=== PATIENT | female | born 2000 | race Caucasian/White ===

== ENCOUNTER 2020-02-23 12:35 | Inpatient (IN) | payer OTHER ==
[2020-02-23] VITALS (25 sets, daily range): BP systolic 103–155; BP diastolic 55–85
[~2020-02-23] VITALS: Ht 177.8 cm; Wt 91.1 kg
[2020-02-23] MEDS ORDERED: PRENTAB9 PO (12:53)
[2020-02-23 14:57] LABS: BASO % 0.2 % (0.0-1.0); EOS # 0.1 10^3/uL (0.0-0.5); EOS % 0.7 % (0.0-3.0); HEMATOCRIT 34.4 % (36.0-47.0); LYMPH % 16.1 % (24.0-44.0); MEAN CORPUSCULAR HEMOGLOBIN 26.4 pg (27.0-33.0); MEAN CORPUSCULAR VOLUME 82.7 fl (80.0-96.0); MONO % 7.8 % (0.0-5.0); NEUTROPHILS # 9.1 10^3/uL (1.5-8.5); PLATELET COUNT, AUTOMATED 373 10^3/uL (150-450); RED BLOOD COUNT 4.16 10^6/uL (4.00-5.40); WHITE BLOOD COUNT 12.2 10^3/uL (4.0-10.0)
[2020-02-23] MEDS ORDERED: OXYTOCIN DRIP 30 UNITS in IV 1 EA IV SCH (15:00)
--- NOTE | 2020-02-23 15:42 | HPEPDOC ---
Obstetrical History & Physical General Date of Admission Feb 23, 2020 at 13:58 History of Present Illness Suri is a 20yo at 40+1wks gestation, EDC [id number], who presents to LND for ROM check. She reports that she felt a gush at 0830 this morning, clear fluid, and continues to flow and fill up pads. She reports some intermittent contractions and cramping, reports +FM, denies vaginal bleeding. Her blood type is A Positive GBS Negative HIV negative Her is complicated by excessive weight gain (>50lbs) and anxiety. She reports that he has stress/anxiety/trauma induced shock/syncope. 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 history Past Medical History Surgical History: Tonsilectomy, [place] teeth Family History Significant Family History: Noncontributory Social History Marital Status: Family situation: Spouse/partner home Psychosocial History: Anxiety * Smoker: non-smoker Alcohol: Denies Drugs: denies Imunizations Tdap status: current Influenza Status: current Allergies Coded Allergies: No Known Drug Allergies (Verified Allergy, Unknown, 02/23/20) Medications Scheduled No.137/Iron/Folic Acd ( Vitamin Tablet) 1 Each Tablet, 1 TAB PO DAILY Physical Examination Physical Examination GENERAL: Alert and oriented times three. ABDOMEN: Gravid and non-tender to touch. FETUS: Is vertex (VTX) by sterile vaginal examination (SVE). HEART RATE: Regular rate and rhythm. LUNGS: Observed nonlabored breathing, EXTREMITIES: No edema. Vital Signs/I&O O: VSS FHR 120s, moderate variability, + accels, no decels noted CTX: intermittent VE: 3/60/-3, posterior EFW: 3000g Vital Signs Date Time Temp Pulse Resp B/P (MAP) Pulse Ox O2 Delivery O2 Flow Rate FiO2 02/23/20 14:51 98.3 74 18 103/58 (73) 02/23/20 13:01 98.3 85 18 120/70 (87) Room Air Laboratory Tests 02/23/20 14:05: Serology Scanned Report Hepatitis B Testing 02/23/20 14:48: White Blood Count 12.2H, Red Blood Count 4.16, Hemoglobin 11.0L, Hematocrit 34.4L, Mean Corpuscular Volume 82.7, Mean Corpuscular Hemoglobin 26.4L, Mean Corpuscular Hemoglobin Concent 32.0, Red Cell Distribution Width 13.6, Platelet Count 373, Immature Granulocyte % (Auto) 1.2, Neutrophils (%) (Auto) 74.0H, Lymphocytes (%) (Auto) 16.1L, Monocytes (%) (Auto) 7.8H, Eosinophils (%) (Auto) 0.7, Basophils (%) (Auto) 0.2, Neutrophils # (Auto) 9.1H, Lymphocytes # (Auto) 2.0, Monocytes # (Auto) 1.0H, Eosinophils # (Auto) 0.1, Basophils # (Auto) 0.0, Nucleated Red Blood Cells % (auto) 0.0, Syphilis Serology [Pending] Laboratory Data 24H LABS Laboratory Tests 2 02/23/20 14:05: Serology Scanned Report Hepatitis B Testing 02/23/20 14:48: Immature Granulocyte % (Auto) 1.2, Neutrophils (%) (Auto) 74.0H, Lymphocytes (%) (Auto) 16.1L, Monocytes (%) (Auto) 7.8H, Eosinophils (%) (Auto) 0.7, Basophils (%) (Auto) 0.2, Neutrophils # (Auto) 9.1H, Lymphocytes # (Auto) 2.0, Monocytes # (Auto) 1.0H, Eosinophils # (Auto) 0.1, Basophils # (Auto) 0.0, Nucleated Red B lood Cells % (auto) 0.0 CBC/BMP Laboratory Tests 02/23/20 14:48 Pertinent Laboratoy Data Blood Type: A+ RBC Antibody Screen: Negative HIV: Negative Hepatitis B: Negative Rapid Plasma Reagin: Immune Rubella: Nonreactive Varicella: Nonreactive Chlamydia/Gonorrhea: Negative Group B Streptococcus: Negative Anatomy Ultrasound Ultrasound Date: Oct 09, 2019 Placenta Location: Posterior Normal Anatomy: Yes Placenta Previa: No Assessment/Plan Assessment A: Suri is a20yo at 40+1wks being admitted for PROM x7 hours, clear fluid, VSS/afebrile; category I FHT. GBS Negative. Plan P: Admit to LND, counseled and consented for pitocin augmentation PIV start, admission labs drawn PO and IV hydration Clear liquids Start Pitocin per low dose protocol CEFM x2 Continue to monitor maternal/ status Consult with OB as indicated Anticipate GAMA BAILEY CNM Feb 23, 2020 15:42
--- NOTE | 2020-02-23 17:06 | IPNPDOC ---
Text Note Date of Service The patient was seen on 02/23/20. NOTE [place] of care Suri is a 20yo at 40w1d who presented with pre-labor ROM, 0830, clear. She has not yet started to have regular/painful ctx. She requested to eat before pitocin started, so currently having a salad. Vitals wnl, afebrile Cat I FHRT with bl 120, +accels, -decels, mod delta [place]: irregular ctx SCE by NUSRAT Barton on admission /-3, posterior Will plan to start pitocin and titrate up per protocol Will continue to closely observe Candidate for epidural in active labor, stadol/phenergan in latent labor Safe to proceed Dr. Damaris Ayala MD VS,Marielos, I+O VSMarielos, I+O Laboratory Tests 02/23/20 14:48 Vital Signs Date Time Temp Pulse Resp B/P (MAP) Pulse Ox O2 Delivery O2 Flow Rate FiO2 02/23/20 14:51 98.3 74 18 103/58 (73) 02/23/20 13:01 Room Air Damaris Ayala MD Feb 23, 2020 17:06
[2020-02-23] MEDS ORDERED: BUTORPHANOL 2 MG/ML INJ (J0595) IV PRN (17:15)
[2020-02-23] MEDS ORDERED: PROMETHAZINE INJ 25 MG/ML VIAL (J2550) IV ONE (17:15)
[2020-02-23] MEDS: LR 1,000 ML IV SCH ×2 (17:51→23:00)
[2020-02-23] MEDS ORDERED: FENTANYL 2MCG/ML ROPIVACAINE 0.2% IN 0.9% NACL 100ML IVBAG As Ordered ONE (22:09)
[2020-02-23] MEDS ORDERED: NALOXONE INJ 0.4 MG/1 ML VIAL (J2310) IV PRN (22:30)
[2020-02-23] MEDS ORDERED: ONDANSETRON 4MG/2ML VIAL (J2405) IV PRN (22:30)
[2020-02-23] MEDS ORDERED: LACTATED RINGER'S 1000 ML IV PRN (22:30)
[2020-02-23] MEDS ORDERED: EPIDURAL/PCA KEYS XX PRN (22:30)
[2020-02-23] MEDS ORDERED: FENTANYL/ROPIVACAINE/NACL BAG 100 ML EPIDURAL SCH (22:30)
[2020-02-23] MEDS ORDERED: diphenhydrAMINE INJ 50MG/ML VIAL (J1200) IV PRN (22:30)
[2020-02-23] MEDS ORDERED: REFRIGERATOR IV KEYS XX PRN (22:30)
[2020-02-23] MEDS ORDERED: EPIDURAL COMMENT XX SCH (22:30)
[2020-02-24] VITALS (20 sets, daily range): BP systolic 101–134; BP diastolic 60–76
[2020-02-24] MEDS: ePHEDrine SULFATE 25 MG/5 ML(5MG/ML) SYRINGE IV PRN ×2 (00:28→00:31)
[2020-02-24] MEDS ORDERED: OXYTOCIN DRIP 30 UNITS in IV 1 EA IV SCH (03:23)
[2020-02-24] MEDS ORDERED: DOCUSATE SODIUM 100 MG CAP PO PRN (03:30)
[2020-02-24] MEDS ORDERED: MEASLES,MUMPS,RUBELLA VACCINE INJ (MMR-II) (90707) SC SCH (03:30)
[2020-02-24] MEDS ORDERED: DIBUCAINE 1% OINTMENT 30GM TOP PRN (03:30)
[2020-02-24] MEDS ORDERED: RHOGAM 300 MCG (1500 IU) INJ (J2790) IM SCH (03:30)
[2020-02-24] MEDS ORDERED: ACETAMINOPHEN TAB 650MG DOSE (2X325MG) PO PRN (03:30)
--- NOTE | 2020-02-24 03:30 | DNPDOC ---
[facility] Delivery Note Delivery Note DATE OF DELIVERY: 24 Feb 2020 PREDELIVERY DIAGNOSIS: 40w2d gestation and labor. POST DELIVERY DIAGNOSIS: Delivered. PROCEDURE: Spontaneous vaginal delivery COP BREAKER: Dr. Damaris Ayala MD ANESTHESIA: epidural ESTIMATED BLOOD LOSS: 250 mL. FINDINGS: 8 pound 8 ounce (3850g) male , Score 8/9, nuchal cord times 1 DELIVERY SUMMARY: Suri is a 20yo [id number] s/p uncomplicated at 40w2d on 24 Feb 2020 at 0255 after presenting with pre-labor rupture of membranes. She was 3cm on admission, had pitocin augmentation, received an epidural during active labor, and progressed to C/C/+2 at which point she began pushing. Infant's head delivered OA, restituted BELLA. Nuchal cord present, not reducible initially. Slight delay of delivery of shoulder, Lolly and suprapubic pressure performed, then left anterior shoulder immediately delivered followed by posterior shoulder and corpus. Nuchal cord reduced. Infant had spontaneous cry, vigorous, apgars 8/9, placed on maternal abdomen- nose and mouth suctioned with bulb suction. Cord clamped x2 and cut by FOB. With uterine massage and traction on the cord, placenta delivered spontaneously and intact with 3 vessel peripherally inserted cord. Bimanual massage performed and IV pitocin given per protocol, fundus then firm at u-2cm and minimal bleeding noted. Inspection of perineum and vagina revealed small 2mll repaired with 3-0 vicryl suture in routine fashion with excellent reapproximation and complete hemostasis. All counts correct x2. Mom and doing well when I left the room. MD Jamie Plasencia Katrina D MD Feb 24, 2020 03:30
[2020-02-24] MEDS: PRENATAL VITAMINS CHEWABLE TABLET PO SCH (08:03)
[2020-02-24] MEDS: ACETAMINOPHEN 500 MG TAB PO PRN ×2 (08:04→15:47)
[2020-02-25] MEDS: ACETAMINOPHEN 500 MG TAB PO PRN (05:45)
[2020-02-25 06:00] VITALS: BP 121/75
[2020-02-25 07:31] VITALS: BP 121/75
--- NOTE | 2020-02-25 08:50 | IPNPDOC ---
Progress Note Date of Service: Feb 25, 2020 Day#: 1 Progress Note SUBJECT: patient is a 20 yo S/P PPD #1. She has no concerns today. S he has been ambulating, voiding spontaneously without issue and tolerating regular diet. Breast feeding without issue. Reports lochia is like a normal period. plans on OCP for contraceptive. OBJECTIVE: VITAL SIGNS: Within normal limits, afebrile. Alert and oriented times three. Abdomen: Fundus firm at U-2. Soft, NTTP. le: no edema/erythema/tenderness A/P ppd #1, doing well. encourage bf. counseled on contraceptive. plan for NORQD. routine ppc. d/c today. Le, DO VS, I&O, 24H, Fishbone Vital Signs/I&O Vital Signs Date Time Temp Pulse Resp B/P (MAP) Pulse Ox O2 Delivery O2 Flow Rate FiO2 02/25/20 07:31 98.1 102 20 121/75 97 Room Air I&O- Last 24 Hours up to 6 AM 02/25/20 06:00 Intake Total 750 ml Output Total 900 ml Balance -150 ml DELIA SEBASTIAN DO Feb 25, 2020 08:50
--- NOTE | 2020-02-25 08:50 | OBDS ---
[facility] Obstetrical Discharge Sum. Obstetrical Discharge Summary [employer]orer [employer]/Provider: Damaris Ayala MD : 1 Term: 1 Pre-term: 0 Abortions: 0 Livin VDRL: Non-Reactive Rh: Positive Rubella: Immune Sex: Male Infant Weight: pounds (8), ounces (8) Anesthesia: Regional Anesthesia A/P, Post Course List any complications Admission diagnosis: Ruptured membranes at term Discharge diagnosis: status pose Condition at Discharge: stable Discharge Instructions: Home Activity: as tolerated Diet: regular Medications: filled at [facility]. [facility] Follow-up: 6-8wks Hospital course: Patient admitted for ruptured membranes at term. She progressed to have a spontaneous vaginal delivery. course uncomplicated and patient meets discharge criteria on day #1. DELIA SEBASTIAN DO Feb 24, 2020 17:56
[2020-02-25] MEDS: PRENATAL VITAMINS CHEWABLE TABLET PO SCH (09:00)
[2020-02-25] MEDS ORDERED: DOCU100C16 PO (10:02)
[2020-02-25] MEDS ORDERED: ACET-683 PO (10:02)
== END 2020-02-25 11:45 | disposition home or self-care (01) | DRG 807 ==
LOC: M LDO 12:35 → M LDI 13:58 → M OBS 02-24 14:10
PROVIDERS: ADMIT Registered Nurse Maternal Newborn; ATTEND Registered Nurse Maternal Newborn
PROC: 10E0XZZ Delivery of Products of Conception, External Approach (ICD-10-PCS; principal; 2020-02-24)
PROC: 0KQM0ZZ Repair Perineum Muscle, Open Approach (ICD-10-PCS; 2020-02-24)
DX: O48.0 Post-term pregnancy (principal); Z37.0 Single live birth; Z3A.40 40 weeks gestation of pregnancy; O26.00 Excessive weight gain in pregnancy, unspecified trimester; O69.82X0 Labor and delivery complicated by other cord entanglement, without compression, not applicable or unspecified; O70.1 Second degree perineal laceration during delivery